=== PATIENT | male | born 1995 | race Caucasian/White ===

== ENCOUNTER 2017-08-21 19:54 | Emergency (ER) | payer OTHER, BC ==
--- NOTE | 2017-08-21 20:47 | EDM.PDOC ---
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 Pain and swelling distal thumb, no bleeding, no other injury. right thumb Pain Score (Numeric/FACES): 5 - Related Data Allergies Allergy/AdvReac Type Severity Reaction Status Date / Time No Known Allergies Allergy Verified 08/21/17 20:03 Home Meds: Home Meds . [No Known Home Meds] 08/21/17 [History] Past Medical History - Past Health History Medical/Surgical History: Denies Medical/Surgical History Social & Family History - Family History Family Medical History: Noncontributory - Tobacco Use Smoking Status *Q: Never Smoker - Caffeine Use Caffeine Use: Reports: Soda - Alcohol Use Number of Drinks Per Day: 2 - Recreational Drug Use Recreational Drug Use: No Review of Systems - Review of Systems Review Of Systems: See Below Mouth/Throat: Reports: No Symptoms Respiratory: Denies: Shortness of Breath GI/Abdominal: Denies: Nausea, Vomiting Musculoskeletal: Reports: Joint Pain (distal L thumb) Neurological: Denies: Numbness, Tingling ED EXAM, GENERAL - Physical Exam Exam: See Below General Appearance: Alert, Mild Distress Head: Atraumatic Respiratory/Chest: No Respiratory Distress Extremities: Other (tender, swollen L distal thumb, very small subungual hematoma, IP joint not swollen, no open injury, no deformity) Neurological: Alert, No Motor/Sensory Deficits Skin Exam: Warm, Dry, Intact Course - Vital Signs Last Recorded V/S: Last Vital Signs Temp 97.8 F 08/21/17 19:58 Pulse 89 08/21/17 19:58 Resp 18 08/21/17 19:58 BP 130/83 08/21/17 19:58 Pulse Ox 98 08/21/17 19:58 - Orders/Labs/Meds Meds: Medications Discontinued Medications Generic Name Dose Route Start Last Admin Trade Name Freq PRN Reason Stop Dose Admin Acetaminophen 975 mg 08/21/17 20:45 08/21/17 20:55 Tylenol PO 08/21/17 20:46 975 mg NOW ONE Administration - Re-Assessments/Exams Free Text/Narrative Re-Assessment/Exam: 08/23/17 08:17 no fx on X ray, thumb splint provided Departure - Departure Time of Disposition: 20:45 Disposition: Home, Self-Care 01 Condition: Fair Clinical Impression: Contusion, thumb Qualifiers: Encounter type: initial encounter Damage to nail status: without damage Laterality: right Qualified Code(s): S60.011A - Contusion of right thumb without damage to nail, initial encounter - Discharge Information Instructions: Hand Contusion Referrals: PCP,None [Primary Care Provider] - Forms: ED Department Discharge Additional Instructions: thumb splint as needed for protection, ice packs and elevation as needed for swelling, alternate tylenol and ibuprofen as needed for discomfort
[2017-08-21] MEDS: Acetaminophen 325 MG Tab PO ONE (20:55)
--- NOTE | 2017-08-22 08:17 | CR ---
Right thumb: Three views of the right thumb were obtained. Comparison: No prior thumb exam. Joint spaces are preserved. No fracture, dislocation or other bony abnormality is seen. Impression: 1. No abnormality is identified on right thumb study. Diagnostic code #1
== END 2017-08-21 20:55 | disposition home or self-care (01) ==
LOC: JD.ED 19:54
DX: S60.011A Contusion of right thumb without damage to nail, initial encounter (principal); W23.0XXA Caught, crushed, jammed, or pinched between moving objects, initial encounter; Y92.89 Other specified places as the place of occurrence of the external cause
CPT/HCPCS: 73140; 99283; A9270